=== PATIENT | male | born 1970 | race Caucasian/White ===

== ENCOUNTER 2017-08-31 12:08 | Emergency (ER) | payer OTHER ==
[2017-08-31 12:30] VITALS: BP 157/95; PULSE 59; TEMP 98.7; BMI 29.3
--- NOTE | 2017-08-31 12:38 | PDOC ---
Attending Attestation - HPI HPI: The patient is a 46 year old male with no pertinent past medical history who presents to the ED with complaints of 3 days of sharp epigastric pain with nausea and 2 episodes of NBNB emesis (2 days ago) and loose stools. Patient has had similar symptoms in the past where he was evaluated by GI and had an EGD done that showed hiatal hernia. Patient was seen in urgent care yesterday for similar symptoms and was given Prilosec. Reports that with the 27 of August this week, hed been eating more fatty foods and had a few beers. Denies fevers/ chills. - Physicial Exam PE: 08/31/17 13:21 GENERAL: Awake, alert, and fully oriented, in no acute distress HEAD: No signs of trauma EYES: PERRLA, EOMI, sclera anicteric, conjunctiva clear ENT: Auricles normal inspection, hearing grossly normal, nares patent, oropharynx clear without exudates. Moist mucosa NECK: Normal ROM, supple, no lymphadenopathy, JVD, or masses LUNGS: Breath sounds equal, clear to auscultation bilaterally. No wheezes, and no crackles HEART: Regular rate and rhythm, normal S1 and S2, no murmurs, rubs or gallops ABDOMEN:(+) mild epigastric tenderness. Soft, normoactive bowel sounds. No guarding, no rebound. No masses EXTREMITIES: Normal range of motion, no edema. No clubbing or cyanosis. No cords, erythema, or tenderness NEUROLOGICAL: Cranial nerves II through XII grossly intact. Normal speech, normal gait SKIN: Warm, Dry, normal turgor, no rashes <Jessy Bautista - Last Filed: 08/31/17 13:21> - Resident Resident Name: Gregory Barrow - ED Attending Attestation I have performed the following: I have examined & evaluated the patient, The case was reviewed & discussed with the resident, I agree w/resident's findings & plan, Exceptions are as noted - Medical Decision Making 08/31/17 12:38 I, Dr. Gayathri Higginbotham, DO, attest that this document has been prepared under my direction and personally reviewed by me in its entirety. I further attest, that it accurately reflects all work, treatment, procedures and medical decision -making performed by me. 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 Martínez in the past -will send labs, ultrasound, medicate -will monitor and reassess 08/31/17 15:13 lipase negative no acute findings on ultrasound labs reviewed and stable for d/c to home <Gayathri Higginbotham - Last Filed: 08/31/17 15:17>
[2017-08-31] MEDS ORDERED: SODIUM CHLORIDE 0.9% 500 ML INFUS.BAG IV ONE (12:51)
--- NOTE | 2017-08-31 12:51 | PDOC ---
History of Present Illness - General Chief Complaint: Pain, Acute Stated Complaint: ABD PAIN Time Seen by Provider: 08/31/17 12:21 History Source: Patient Exam Limitations: No Limitations - History of Present Illness Travel History: No Initial Comments: The patient is a 47M who presents with 3 days of worsening epigastric abdominal pain. He endorses associaed N/V x3 and pale/loose stools during this time. He denies any previous episodes. However, he was seen 1 year ago for reflux, underwent a EGD and abdominal US (both reportedly normal). He reports that this past week he has been eating fattier foods and consuming more EtOH than is normal for him 2/2 the Holiday. He was seen at an Urgent Care yesterday for the same symptoms and was prescribed Prilosec 40mg daily which has provided minimal relief thus far. 08/31/17 15:50 Timing/Duration: reports: getting worse Quality: reports: moderate, cramping, sharpness Abdominal Pain Onset Location: reports: epigastric Pain Radiation: reports: no radiation Past History - Past Medical History Allergies/Adverse Reactions: Allergies Allergy/AdvReac Type Severity Reaction Status Date / Time No Known Allergies Allergy Verified 08/31/17 12:15 Home Medications: Ambulatory Orders Omeprazole 40 mg PO DAILY 08/31/17 Cancer: No Hx Myocardial Infarction: No CVA: No COPD: No Diabetes: No Kidney Stones: No - Surgical History Abdominal Surgery: No - Suicide/Smoking/Psychosocial Hx Smoking History: Never smoked Have you smoked in the past 12 months: No Information on smoking cessation initiated: No Hx Alcohol Use: No Drug/Substance Use Hx: No Substance Use Type: Marijuana Abd/GI Specific PMHX - Complaint Specific PMHX Colitis: No Diverticulitis: No Gall Bladder Disease: No Hepatitis: No Irritable Bowel Synd (IBS): No Pancreatitis: No Review of Systems - Review of Systems Constitutional: Yes: Weight Stable. No: Chills, Fever HEENTM: No: Blurred Vision, Throat Pain, Difficulty Swallowing Respiratory: No: Cough, Shortness of Breath Cardiac (ROS): No: Chest Pain, Palpitations ABD/GI: Yes: See HPI : No: Dysuria, Hematuria Musculoskeletal: No: Joint Pain, Muscle Pain, Muscle Weakness Integumentary: No: Pruritus, Rash Neurological: No: Headache, Numbness, Paresthesia Psychiatric: No: Anxiety, Depression Endocrine: No: Intolerance to Cold, Intolerance to Heat Hematologic/Lymphatic: No: Easy Bleeding, Easy Bruising *Physical Exam - Vital Signs Last Vital Signs Temp Pulse Resp BP Pulse Ox 98.7 F 59 L 20 157/95 100 08/31/17 12:17 08/31/17 12:17 08/31/17 12:17 08/31/17 12:17 08/31/17 12:17 - Physical Exam General Appearance: Yes: Nourished. No: Apparent Distress, Intoxicated HEENT: positive: EOMI, MARK, Normal ENT Inspection Neck: positive: Trachea midline, Supple. negative: Lymphadenopathy (R), Lymphadenopathy (L) Respiratory/Chest: positive: Chest Tender, Lungs Clear, Normal Breath Sounds Cardiovascular: positive: Regular Rhythm, Regular Rate, S1, S2. negative: Edema , JVD, Murmur Vascular Pulses: Femoral (R): 2+, Femoral (L): 2+, Carotid (R): 2+, Carotid (L) : 2+, Dorsalis-Pedis (R): 2+, Doralis-Pedis (L): 2+ Gastrointestinal/Abdominal: positive: Normal Bowel Sounds, Tender (epigastric), Soft. negative: Distended, Guarding, Rebound, Hernia Musculoskeletal: positive: Normal Inspection. negative: CVA Tenderness (R), CVA Tenderness (L) Extremity: positive: Normal Capillary Refill, Normal Range of Motion. negative : Delayed Capillary Refill Integumentary: positive: Normal Color, Warm. negative: Rash Neurologic: positive: toddler teacher II-XII NML intact, Fully Oriented, Normal Mood/Affect , Motor Strength 06/28 ED Treatment Course - LABORATORY CBC & Chemistry Diagram: 08/31/17 13:09 08/31/17 13:09 Medical Decision Making - Medical Decision Making The patient is a 47M with no reported PMH who presents with 3d of worsening achy epigastric pain Ddx: cholecystitis, cholangitis, choledocholithiasis, pancreatitis, PUD, gastritis, GERD, esophagtitis ED course Epigastric pain -BMP, CBC, Lipase, ECG, RUQ US -Maalox 30mg PO -Lidocaine 20gm PO 08/31/17 13:45 Epigastric pain much improved after Maalox and Lidocaine. US without evidence of cholecystitis. Dispo: Patient determined to be suitable for discharge. Follow up instruction and return precautions given and patient verbalized understanding. The patient should also continue to take Prilosec daily. 08/31/17 15:47 *DC/Admit/Observation/Transfer Diagnosis at time of Disposition: Epigastric abdominal pain - Discharge Dispostion Disposition: HOME Condition at time of disposition: Good Decision to Admit order: No - Referrals Referrals: Andrea Gray [Primary Care Provider] - Dave Martínez MD [Staff Physician] - - Patient Instructions Printed Discharge Instructions: DI for Epigastric Pain Additional Instructions: You were seen in the Emergency Department today for epigastric pain. Your abdominal ultrasound of your right upper quadrant was not significant for gallbladder disease. Continue to take your prescribed Prilosec. Return to the Emergency Department if you have persistent vomiting, diarrhea, blood in your stool or vomit, or fevers. You have also been referred to a Loan And Credit Manager, Dr. Dave Martínez. Follow up with him for further evaluation of your epigastric pain. - Post Discharge Activity
[2017-08-31 13:22] LABS: HEMATOCRIT 43.7 % (35.4-49); HEMOGLOBIN 14.8 GM/dL (11.7-16.9); MCH 29.8 pg (25.7-33.7); MCHC 33.9 g/dl (32.0-35.9); MEAN CELL VOLUME 88.1 fl (80-96); MEAN PLT VOLUME 8.9 fl (7.5-11.1); PLATELET COUNT 170 K/MM3 (134-434); RBC 4.96 M/mm3 (4.00-5.60); RDW 13.5 % (11.9-15.9); WHITE BLOOD COUNT 5.7 K/mm3 (4.0-10.0)
[2017-08-31 13:41] LABS: ANION GAP 7 (8-16); BLOOD UREA NITROGEN 14 mg/dL (7-18); CALCIUM 9.1 mg/dL (8.5-10.1); CHLORIDE 108 mmol/L (98-107); CO2 28 mmol/L (21-32); GLUCOSE,RANDOM 81 mg/dL (74-106); SODIUM 143 mmol/L (136-145)
[2017-08-31 13:44] LABS: ALBUMIN 4.3 g/dl (3.4-5.0); BILIRUBIN,DIRECT 0.2 mg/dL (0.0-0.2); BILIRUBIN,TOTAL 0.8 mg/dL (0.2-1.0); TOT PROT 7.4 g/dl (6.4-8.2)
[2017-08-31] MEDS ORDERED: LIDOCAINE VISCOUS 2% ORAL/TOP 20 ML UNIT-DOSE CUP MM ONE (14:33)
[2017-08-31] MEDS ORDERED: MAG HYDROX/AL HYDROX/SIMETH 30 ML UNIT-DOSE CUP PO ONE (14:33)
[2017-08-31] MEDS ORDERED: ONDANSETRON 4 MG/2 ML VIAL IVPUSH ONE (14:34)
[2017-08-31] MEDS ORDERED: LIDOCAINE VISCOUS 2% ORAL/TOP 20 ML UNIT-DOSE CUP ONE (14:35)
[2017-08-31] MEDS ORDERED: MAG HYDROX/AL HYDROX/SIMETH 30 ML UNIT-DOSE CUP ONE (14:35)
[2017-08-31] MEDS ORDERED: ONDANSETRON 4 MG/2 ML VIAL ONE (14:35)
== END 2017-08-31 15:22 | disposition home or self-care (01) ==
LOC: EDBD 12:08 → JER 12:08
PROC: 3E0337Z Introduction of Electrolytic and Water Balance Substance into Peripheral Vein, Percutaneous Approach (ICD-10-PCS; principal; 2017-08-31)
PROC: 3E033GC Introduction of Other Therapeutic Substance into Peripheral Vein, Percutaneous Approach (ICD-10-PCS; 2017-08-31)
DX: R10.13 Epigastric pain (principal)
CPT/HCPCS: 36415; 76705-TC; 80048; 80076; 83690; 85027; 99282-25